=== PATIENT | male | born 1990 | race Caucasian/White ===

== ENCOUNTER 2017-03-25 18:09 | Emergency (ER) | payer OTHER ==
[~2017-03-25] VITALS: Ht 172.7 cm; Wt 81.6 kg
[2017-03-25 18:19] VITALS: BP 126/89
--- NOTE | 2017-03-25 19:49 | NUR ---
PT TAKEN TO OVERFLOW CHAIR 3.
--- NOTE | 2017-03-25 19:57 | NUR ---
Patient being evaluated by Dr. Gambino in overflow.
[2017-03-25] MEDS ORDERED: KETOROLAC 60 MG/2 ML VIAL IM ONE (20:00)
[2017-03-25] MEDS ORDERED: ceFAZolin 1,000 MG VIAL IM ONE (20:00)
[2017-03-25 20:26] VITALS: BP 118/81
--- NOTE | 2017-03-25 20:26 | NUR ---
Patient discharged with v/s stable. Written and verbal after care instructions given and explained BY DR. JOHNSON. Patient alert, oriented and verbalized understanding of instructions. Ambulatory with steady gait. All questions addressed prior to discharge. ID band removed. Patient advised to follow up with PMD. Rx of NAPROSYN, KEFLEX given. Patient educated on indication of medication including possible reaction and side effects. Opportunity to ask questions provided and answered.
== END 2017-03-25 20:26 | disposition home or self-care (01) ==
LOC: MED 18:09
DX: S93.602A Unspecified sprain of left foot, initial encounter (principal); L03.116 Cellulitis of left lower limb; R03.0 Elevated blood-pressure reading, without diagnosis of hypertension; X58.XXXA Exposure to other specified factors, initial encounter; Y93.89 Activity, other specified; Y92.89 Other specified places as the place of occurrence of the external cause; Y99.8 Other external cause status
CPT/HCPCS: 73630; 96372; 99284; J0690; J1885